=== PATIENT | female | born 1955 | race Caucasian/White ===

== ENCOUNTER → 2024-07-22 08:57 | Outpatient (REF) | payer MEDICARE, OTHER, SELFPAY | LOC: RAD 08:57 | PROVIDERS: ATTENDING PHYSICIAN Specialist; FAMILY PHYSICIAN Nurse Practitioner | DX: M25.512 Pain in left shoulder (principal) | CPT/HCPCS: 76882 ==

== ENCOUNTER → 2024-08-03 13:53 | Outpatient (REF) | payer MEDICARE, OTHER, SELFPAY ==
[2024-08-03 15:18] LABS: Hematocrit 40.1 % (37.0-47.0); Hemoglobin 13.7 g/dL (12.0-16.0); Mean Corp Hgb Conc. 34.2 g/dL (33.0-37.0); Mean Corpuscular Hgb 30.3 pg (27.0-31.0); Mean Corpuscular Volume 88.7 fL (81.0-99.0); Mean Platelet Volume 10.1 fL (7.4-10.4); Platelet Count 291 10^3/uL (130-400); Red Blood Cell Count 4.52 10^6/uL (4.20-5.40); Red Cell Dist. Width 13.1 % (11.5-14.5); White Blood Cell Count 12.1 10^3/uL (4.8-10.8)
== END ==
LOC: SDSPAT 13:53
PROVIDERS: ATTENDING PHYSICIAN Specialist; FAMILY PHYSICIAN Nurse Practitioner
DX: Z01.818 Encounter for other preprocedural examination (principal)
CPT/HCPCS: 36415; 85027; 93005

== ENCOUNTER 2024-08-07 06:23 | Day surgery (SDC) | payer MEDICARE, OTHER, SELFPAY ==
[2024-08-03 14:37] VITALS: BMI 27.8
--- NOTE | 2024-08-04 15:46 | PTCARENOTE ---
Abnormal EKG on 08/03/24. Dr. Dixon aware. No intervention required.
[2024-08-07] VITALS (10 sets, daily range): BP systolic 118–158; BP diastolic 55–85; BMI 27.8
[2024-08-07] MEDS: CELEBREX 200 MG PO (10:39)
[2024-08-07] MEDS: TYLENOL 1000 MG PO (10:39)
[2024-08-07] MEDS: NORMOSOL-R/PLASMALYTE-A 1000 IV (10:42)
[2024-08-07] MEDS: DEMEROL 12.5 MG IV (14:31)
== END 2024-08-07 16:32 | disposition home or self-care (01) ==
LOC: SDS 06:23
PROVIDERS: ATTENDING PHYSICIAN Specialist; FAMILY PHYSICIAN Nurse Practitioner
DX: M75.102 Unspecified rotator cuff tear or rupture of left shoulder, not specified as traumatic (principal); M75.42 Impingement syndrome of left shoulder
CPT/HCPCS: 29827; 29826; C1713